=== PATIENT | female | born 1950 | race Caucasian/White ===

== ENCOUNTER 2016-03-12 08:09 | Inpatient (IN) | payer OTHER, MEDICARE ==
[2016-02-12 11:35] VITALS: BMI 32.0
--- NOTE | 2016-02-12 12:09 | PAT Medication Instructions ---
Service Date Feb 12, 2016. Current Home Medication List Aspirin (Aspirin Chewable), 81 MG PO QAM Atorvastatin (Lipitor), 20 MG PO QAM B Complex W/ C (Vitamin B Complex-C), 1 TAB PO QAM Calcium (Caltrate), 600 MG PO QAM Clonazepam (Klonopin), 0.5 MG PO HS PRN for RN Ibuprofen (Advil), 800 MG PO PRN Losartan Potassium & Hydrochlo (Hyzaar), 1 TAB PO QAM Magnesium Oxide (Mag-Ox), 400 MG PO QAM Multiple Vitamin (Multivitamin), 1 TAB PO QAM [place]-3 Fatty Acids (Fish Oil), 2,000 MG PO QAM Omeprazole (Prilosec), 20 MG PO QAM Potassium Chloride (Micro-K Ext Rel), 20 MEQ PO QAM Medication Instructions For Your Scheduled Surgery - Check with surgeon (Dr. Kendrick) for instructions: Aspirin (Aspirin Chewable), 81 MG PO QAM Ibuprofen (Advil), 800 MG PO PRN - Hold the following medications 2 weeks prior to surgery: [place]-3 Fatty Acids (Fish Oil), 2,000 MG PO QAM - Hold the following medications the morning of surgery: Losartan Potassium & Hydrochlo (Hyzaar), 1 TAB PO QAM Potassium Chloride (Micro-K Ext Rel), 20 MEQ PO QAM Magnesium Oxide (Mag-Ox), 400 MG PO QAM Multiple Vitamin (Multivitamin), 1 TAB PO QAM B Complex W/ C (Vitamin B Complex-C), 1 TAB PO QAM Calcium (Caltrate), 600 MG PO QAM - Take the following medications the morning of surgery with a sip of water: Omeprazole (Prilosec), 20 MG PO QAM Atorvastatin (Lipitor), 20 MG PO QAM - Take the following medications as scheduled the night before surgery: Clonazepam (Klonopin), 0.5 MG PO HS PRN for RN If you have any questions please call us at [phone] (Keysha Griggs PA-C) or [phone] or [phone]
[2016-02-12 12:57] LABS: BASO % 0.6 %; BASO ABS # 0.06 K/uL (0-0.2); COMPLETE YES; EOS % 2.4 %; HEMATOCRIT 36.6 % (37-47); IG% 0.4 %; LYMPH % 23.4 %; LYMPH ABS # 2.24 K/uL (1.2-3.4); MEAN CELL VOLUME 89.1 fL (80-100); MEAN CORPUSCULAR HEMOGLOBIN 30.2 pg (25-34); MEAN CORPUSCULAR HGB CONC 33.9 g/dl (32-36); MEAN PLATELET VOLUME 9.5 fL (7.4-10.4); MONO % 7.5 %; NEUT % 65.7 %; PLATELET COUNT 334 K/uL (130-400); RED BLOOD COUNT 4.11 M/uL (4.2-5.4); WHITE BLOOD COUNT 9.57 K/uL (4.8-10.8)
--- NOTE | 2016-02-12 13:15 | DIAGNOSTIC IMAGING REPORT ---
TWO VIEW CHEST CLINICAL HISTORY: Preoperative examination. FINDINGS: PA and lateral chest radiographs are compared to study dated 11/07/2011. The cardiomediastinal silhouette is unremarkable. The lungs and pleural spaces are clear. There is no pneumothorax. The skeletal structures are osteopenic. Degenerative change and scoliosis are noted in the thoracic spine. Cholecystectomy clips are suspected in the right upper quadrant. IMPRESSION: No active disease in the chest. Electronically signed by: Alexandru Muñoz M.D. 02/12/2016 1:13 PM
[2016-02-12 13:21] LABS: BUN/CREATININE RATIO 27.3 (10-20); CALCIUM 9.3 mg/dl (8.5-10.1); CREATININE 0.77 mg/dl (0.60-1.20)
--- NOTE | 2016-03-11 15:17 | HISTORY & PHYSICAL EXAMINATION ---
DATE OF ADMISSION: 03/12/2016 HISTORY: The patient presents to our office with complaints of back and bilateral leg pain, right greater than left. Prolonged walking and standing exacerbate her symptoms. She has trialed pain management injections with temporary relief. Denies bowel or bladder dysfunction. PAST MEDICAL HISTORY: Significant for GERD, hiatal hernia, obesity, hypertension, high cholesterol. PAST SURGICAL HISTORY: Significant for knee replacement, cholecystectomy, arthrocentesis of the right shoulder, arthroscopy of the wrist and knee. ALLERGIES: INCLUDE PENICILLIN, ERYTHROMYCIN, AND MELOXICAM. MEDICATIONS: Aspirin 81 mg a day, magnesium 250 mg a day, multivitamin, niacin 500 mg a day, hydrocodone p.r.n., Hyzaar 50/12.5 daily, Lipitor 10 mg daily, omeprazole 20 mg daily, oxycodone 10 mg every 12 hours, Zyrtec 10 mg p.r.n., Caltrate, Xarelto 10 mg daily, Super B Complex. SOCIAL HISTORY: She is . Alcohol none, tobacco none. REVIEW OF SYSTEMS: Significant for back and leg pain. PHYSICAL EXAMINATION: HEENT: Speech appropriate. CARDIOPULMONARY: No gross abnormalities. ABDOMEN: Soft, nondistended. GENITOURINARY: Deferred. NEUROLOGIC: Cranial nerves II-XII grossly intact. MUSCULOSKELETAL: She moves with a steady gait. She has weakness of her bilateral quadriceps, mostly secondary to knee pain. Sensory is intact. ASSESSMENT: Severe neural foraminal stenosis of L4-L5, marked disc space collapse of L5-S1, significant degenerative changes of L3-L4. PLAN: At this point in time, she has tried and failed conservative therapy and may consider surgical intervention. Surgery would require lumbar decompression and fusion of L4-L5 and L5-S1. Risks, benefits, pros, cons, and alternatives were outlined in detail. She would like to proceed with above-mentioned surgical intervention.
[~2016-03-12] VITALS: Ht 177.8 cm; Wt 102.0 kg
[2016-03-12] VITALS (7 sets, daily range): BP systolic 126–168; BP diastolic 68–82; PULSE 69–96; TEMP 36.1–37; O2SAT 91–98; Ht 177.8 cm; Wt 102.0 kg
--- NOTE | 2016-03-12 07:34 | History & Physical Bridge Note ---
H&P Re-Evaluation Bridge Note: I have examined the patient, reviewed the History & Physical and in the interval since the performance of the History & Physical I have noted the following changes of clinical significance: No changes noted
[~2016-03-12 08:09] MED LIST: ASPCH81X PO; ATOR-22 PO; ATROPINE SULFATE 0.1 MG/ML 5ML SYR IV PRN; B COCAP3 PO; CALC600T14 PO; CLINDAMYCIN 600 MG/54 ML D5W IV SCH; CLON0.5T3 PO; EpHEDrine SULFATE INJ 50 MG/ML AMP IV PRN; FENTANYL CITRATE INJ 50 MCG/1 ML 2 ML VIAL IV PRN; IBUP-1050 PO; LOSA100T2 PO; MAGN400T6 PO; MULTTAB58 PO; OMEGCAP2 PO; ONDANSETRON INJ 2 MG/ML 2 ML VIAL IV PRN; POTA10CA28 PO; PRLSR20 PO
[2016-03-12] MEDS ORDERED: ACET-1256 PO (08:44)
[2016-03-12] MEDS ORDERED: MIDAZOLAM HCL 1 MG/ML 2ML VIAL ONE (10:49)
[2016-03-12] MEDS ORDERED: FENTANYL CITRATE INJ 50 MCG/1 ML 2 ML VIAL ONE ×4 (10:50→14:36)
[2016-03-12] MEDS ORDERED: HYDROmorphone INJ 2 MG/ML SYR/VIAL ONE (11:45)
[2016-03-12] MEDS ORDERED: BACITRACIN 50000 UNIT VIAL IR ONE (12:11)
[2016-03-12] MEDS ORDERED: BUPIVACAINE/EPINEPHRINE 0.5% MPF 1:200,000 30 ML VIAL INJ ONE (12:11)
[2016-03-12] MEDS ORDERED: NEOSTIGMINE METHYLSULFATE 1 MG/ML 10ML VIAL ONE (13:04)
[2016-03-12] MEDS ORDERED: ROCURONIUM BROMIDE 10 MG/ML 5 ML VIAL ONE (13:04)
[2016-03-12] MEDS ORDERED: LIDOCAINE HCL 2% 2 ML VIAL (20MG/ML) ONE (13:04)
[2016-03-12] MEDS ORDERED: ONDANSETRON INJ 2 MG/ML 2 ML VIAL ONE (13:04)
[2016-03-12] MEDS ORDERED: DEXAMETHASONE SOD INJ 4 MG/ML VIAL ONE (13:04)
[2016-03-12] MEDS ORDERED: PROPOFOL IV EMULSION 10 MG/ML 20 ML VIAL IV ONE (13:04)
[2016-03-12] MEDS ORDERED: PHENYLEPHRINE 100MCG/ML 5ML SYR ONE (13:04)
[2016-03-12] MEDS ORDERED: GLYCOPYRROLATE INJ 0.2 MG/ML VIAL ONE (13:04)
[2016-03-12] MEDS ORDERED: DURASEAL DURAL SEALANT 5ML TOP ONE (13:35)
[2016-03-12] MEDS ORDERED: KETOROLAC TROMETHAMINE 30 MG/ML VIAL ONE (13:42)
[2016-03-12] MEDS ORDERED: SODIUM CHLORIDE 0.9% 1000ML 1,000 ML IV SCH (13:43)
[2016-03-12] MEDS ORDERED: FLOSEAL HEMOSTATIC MATRIX 10ML TOP ONE (13:45)
[2016-03-12] MEDS ORDERED: METOCLOPRAMIDE HCL INJ 5 MG/ML 2 ML VIAL IV PRN (13:45)
[2016-03-12] MEDS ORDERED: DO NOT ADMINISTER FLU VACCINE PRN ×3 (13:45)
[2016-03-12] MEDS ORDERED: BISACODYL 10 MG SUPP PR PRN (13:45)
[2016-03-12] MEDS ORDERED: SOD PHOSPHATE/SOD BIPHOSPHATE ENEMA 132 ML BTL PR PRN (13:45)
[2016-03-12] MEDS ORDERED: PROMETHAZINE HCL INJ 12.5 MG in SODIUM CHLORIDE 0.9% 50ML 50 ML IV PRN (13:45)
[2016-03-12] MEDS ORDERED: LORAZEPAM INJ 0.5 MG in SYRINGE 0.75 ML IV PRN (13:45)
[2016-03-12] MEDS ORDERED: DO NOT ADMINISTER PNEUMOCOCCAL VACCINE PRN ×2 (13:45)
[2016-03-12] MEDS ORDERED: ACETAMINOPHEN IV 100 ML IV PRN (13:45)
[2016-03-12] MEDS ORDERED: MAGNESIUM HYDROXIDE SUSP 30 ML UDC PO PRN (13:45)
[2016-03-12] MEDS ORDERED: NALOXONE HCL 0.4 MG/1 ML VIAL/CARP IV PRN ×2 (13:45)
--- NOTE | 2016-03-12 13:49 | DIAGNOSTIC IMAGING REPORT ---
INTRAOPERATIVE FLUOROSCOPIC IMAGES OF THE LUMBAR SPINE CLINICAL HISTORY: L4-S1 decompression and fusion. COMPARISON STUDY: No previous studies for comparison. FLUOROSCOPY TIME: 23 seconds. FINDINGS: 2 fluoroscopic images demonstrate L4-L5 and L5-S1 discectomies with interbody spacer placement. There is a posterior decompression. Note is made of bilateral pedicle screws at the L4, L5 and S1 levels with interconnecting rods. Hardware is intact. IMPRESSION: Intraoperative fluoroscopic images demonstrating L4-L5 and L5-S1 discectomies and L4-S1 bilateral pedicle screw fusion. Electronically signed by: David Naqvi M.D. 03/12/2016 1:47 PM Dictated Date/Time: 03/12/2016 1:46 PM
[2016-03-12] MEDS ORDERED: HYDROmorphone HCL 0.5MG/ML 50 ML CASSETTE ONE (14:11)
--- NOTE | 2016-03-12 14:44 | OPERATIVE REPORT ---
DATE OF OPERATION: 03/12/2016 PREOPERATIVE DIAGNOSES: Spinal stenosis, spondylolisthesis. POSTOPERATIVE DIAGNOSES: Same. PROCEDURES PERFORMED: 1. Lumbar decompression, medial facetectomy, and foraminotomy L3-4, L4-5, L5-S1. 2. Posterior spinal fusion L4-5, L5-S1. 3. Placement posterior segmental instrumentation using Orthros rods and screws L4-5, L5-S1. 4. Interbody fusion L4-5 and L5-S1. 5. Placement of PEEK cage 10 x 22 at L4-5 and L5-S1. 6. Placement of locally harvested morcellized autograft posterior gutters. 7. Placement of Infuse collagen sponge combined with Mastergraft in the posterior gutters and Theresa bone grafting in interbody space. SURGEON: Dr. Wily Kendrick. SWITCH FOREMAN: Lili Martinez PA-C. Due to the complex nature of the procedure, the entire surgery was performed with the assistant professor of biology of [employer]. The customer relations assistant, under direct supervision, was involved in the actual performance of all aspects of the surgical procedure including hemostasis, tissue retraction and incision, instrument management, patient positioning, and wound closure. ANESTHESIA: General. DISPOSITION: The patient awakened and taken to PACU in stable condition. HISTORY OF PATIENT'S PROBLEMS: This is a 66-year-old female who presents with above-mentioned diagnosis after failing an extensive course of nonoperative care, elected to undergo the above-mentioned procedure. Risks, benefits, pros, cons, and alternatives were outlined in detail preoperatively. DESCRIPTION OF PROCEDURE: The patient was met with preoperatively, case discussed and all questions were addressed. At that point, the patient was taken back to operative suite and after undergoing successful general endotracheal intubation via department of anesthesia was placed in prone position on Charles table atop Chester frame. All bony prominences were well padded and the eyes were inspected to ensure there was no external pressure placed upon them. At this point, lumbar spine was prepped and draped in normal sterile fashion. Sharp dissection with the assistance of Bovie cautery was performed down to and exposing the lamina and transverse processes of L4, L5 and sacral ala bilaterally. From a caudal to cephalad fashion, complete laminectomy of L5, L4, and partial laminectomy of L3 was performed addressing severe lateral recess and foraminal stenosis. Pedicle screws were then placed in L4-5 and S1 levels bilaterally with assistance of fluoroscopy and appropriate size jossie provisionally placed. Through a transforaminal approach on the right, a complete discectomy of L5-S1 was performed, endplates curetted to subcortical bleeding bone and a 10 x 22 mm PEEK cage filled with Theresa bone grafting tapped into position. I then proceeded to L4-5 and again through a transforaminal approach on the right, a complete discectomy was performed, endplates curetted to subcortical bone and again 10 x 22 mm PEEK cage filled with Theresa bone grafting tapped into position. Rods were then compressed, locked into final position bilaterally and incidental durotomy was noted dorsally at the distal aspect of the decompression. This was repaired with 4-0 Nurolon and approximately 1 mL of DuraSeal. There was thin leak appeared to be of watertight seal. The transverse processes of L4, L5 and S1 levels were then burred to subcortical bone. Infuse collagen sponge combined with Mastergraft and locally harvested morcellized autograft was placed in the posterior gutters. Incision was closed with 1-0 Vicryl in the fascia, 2-0 Vicryl subcutaneously, 4-0 Monocryl for final skin closure. Steri-Strips and sterile dressing placed. The patient was awakened and taken to PACU in stable condition. I attest to the content of the Intraoperative Record and any orders documented therein. Any exceptio ns are noted below.
[2016-03-12] MEDS: HYDROmorphone INJ 1 MG/ML SYR IV PRN ×3 (14:55→15:15)
--- NOTE | 2016-03-12 15:29 | Anesthesiology Progress Note ---
Anesthesia Post Op Note Date & Time Mar 12, 2016 at 15:28 Vital Signs Pain Intensity: 5 Vital Signs Past 12 Hours Date Time Temp Pulse Resp B/P Pulse Ox O2 Delivery O2 Flow Rate FiO2 03/12/16 15:09 71 14 96 03/12/16 15:09 72 14 03/12/16 15:08 128/62 03/12/16 15:04 68 18 96 03/12/16 15:04 68 18 03/12/16 15:03 123/69 03/12/16 14:59 75 22 96 03/12/16 14:59 75 22 03/12/16 14:58 118/69 03/12/16 14:54 73 15 03/12/16 14:54 72 15 95 03/12/16 14:53 119/68 03/12/16 14:49 68 17 98 03/12/16 14:49 68 17 03/12/16 14:48 130/67 03/12/16 14:44 68 16 95 03/12/16 14:44 68 16 03/12/16 14:43 127/67 03/12/16 14:39 69 18 92 03/12/16 14:39 70 18 03/12/16 14:38 110/76 03/12/16 14:34 76 15 134/68 95 03/12/16 14:34 75 15 03/12/16 14:29 74 21 100 03/12/16 14:29 74 21 03/12/16 14:28 126/64 03/12/16 14:24 73 21 100 03/12/16 14:24 73 21 03/12/16 14:23 127/72 03/12/16 14:21 72 19 100 03/12/16 14:21 73 19 03/12/16 14:18 132/72 03/12/16 14:16 74 20 03/12/16 14:16 74 20 100 03/12/16 14:13 36.8 83 14 132/69 98 Mask 10 03/12/16 14:13 128/66 03/12/16 14:11 71 22 99 03/12/16 14:11 71 22 03/12/16 14:08 132/69 03/12/16 14:06 78 19 03/12/16 14:06 78 19 98 03/12/16 14:06 36.8 84 14 141/71 98 Mask 10 03/12/16 08:51 36.5 96 20 168/77 96 Room Air Notes Mental Status: alert / awake / arousable, participated in evaluation Pt Amnestic to Procedure: Yes Nausea / Vomiting: adequately controlled Pain: adequately controlled Airway Patency, RR, SpO2: stable & adequate BP & HR: stable & adequate Hydration State: stable & adequate Anesthetic Complications: no major complications apparent
[2016-03-12] MEDS: HYDROmorphone HCL 0.5MG/ML 50 ML CASSETTE IV PRN ×2 (15:54→22:54)
[2016-03-12] MEDS: LACTATED RINGER'S 1000ML 1,000 ML IV SCH ×2 (16:07→20:06)
[2016-03-12] MEDS: DOCUSATE SODIUM/SENNA 50/8.6MG TAB PO SCH (20:56)
[2016-03-12] MEDS: DEXAMETHASONE INJ 6 MG in SYRINGE 0 ML IV SCH (21:50)
[2016-03-12] MEDS: ONDANSETRON INJ 2 MG/ML 2 ML VIAL IV PRN (21:50)
[2016-03-12] MEDS: CLINDAMYCIN IV 600 MG in DEXTROSE 5% ADD-VANTAGE 50ML 50 ML IV SCH (21:50)
[2016-03-12] MEDS: ACETAMINOPHEN 500 MG TAB PO PRN (21:50)
[2016-03-12] MEDS: LORAZEPAM 0.5 MG TAB PO PRN (22:30)
[2016-03-13 02:50] VITALS: BP 148/74; PULSE 90; TEMP 36.9; O2SAT 93
[2016-03-13] MEDS: LACTATED RINGER'S 1000ML 1,000 ML IV SCH ×4 (02:50→21:43)
[2016-03-13] MEDS ORDERED: HYDROmorphone INJ 0.5 MG/0.5 ML SYR IV PRN (06:00)
[2016-03-13] MEDS ORDERED: DC PCA SCH (06:00)
[2016-03-13] MEDS: CLINDAMYCIN IV 600 MG in DEXTROSE 5% ADD-VANTAGE 50ML 50 ML IV SCH (06:11)
[2016-03-13] MEDS: ONDANSETRON INJ 2 MG/ML 2 ML VIAL IV PRN ×2 (06:11→18:31)
[2016-03-13] MEDS: DEXAMETHASONE INJ 6 MG in SYRINGE 0 ML IV SCH ×2 (06:12→13:52)
[2016-03-13 06:28] LABS: BASO % 0.1 %; BASO ABS # 0.01 K/uL (0-0.2); COMPLETE YES; HEMATOCRIT 31.8 % (37-47); IG% 0.4 %; LYMPH % 4.2 %; LYMPH ABS # 0.67 K/uL (1.2-3.4); MEAN CELL VOLUME 87.1 fL (80-100); MEAN CORPUSCULAR HEMOGLOBIN 30.4 pg (25-34); MEAN CORPUSCULAR HGB CONC 34.9 g/dl (32-36); MONO % 9.1 %; NEUT % 86.2 %; PLATELET COUNT 276 K/uL (130-400); RED BLOOD COUNT 3.65 M/uL (4.2-5.4)
[2016-03-13 06:56] LABS: BUN/CREATININE RATIO 29.4 (10-20); CALCIUM 8.9 mg/dl (8.5-10.1); CREATININE 0.69 mg/dl (0.60-1.20)
[2016-03-13 07:12] VITALS: BP 124/70; PULSE 81; TEMP 36.9; O2SAT 91
[2016-03-13] MEDS: OXYCODONE HCL IR 5 MG TAB (IMMEDIATE RELEASE) PO PRN ×3 (07:55→20:29)
--- NOTE | 2016-03-13 08:25 | PROGRESS NOTE ---
DATE: 03/13/2016 Postop day 1. She complained of a modest headache last evening. She seems asymptomatic at this time. She is frustrated lying in bed. Would like to roll over to her side more often. She denies any leg pain. Denies any current nausea or vomiting. On exam, she has excellent strength to testing. Demonstrates no nuchal rigidity or photophobia. ASSESSMENT: Status post lumbar decompression and fusion. PLAN: At this time, I would like to maintain essentially bed rest for another 24 hours. We will maintain regular IV fluids. Reassess in a.m. Perhaps begin physical therapy after my assessment.
[2016-03-13] MEDS ORDERED: LOSARTAN POTASSIUM PO SCH (09:00)
[2016-03-13] MEDS ORDERED: HYDROCHLO PO SCH (09:00)
[2016-03-13] MEDS: ASPIRIN 81 MG CHEW PO SCH (09:00)
[2016-03-13] MEDS: POTASSIUM CHLORIDE 20 MEQ TABCR PO SCH (09:14)
[2016-03-13 09:15] VITALS: BP 125/71; PULSE 81
[2016-03-13] MEDS: LOSARTAN POTASSIUM 50 MG TAB PO SCH (09:16)
[2016-03-13] MEDS: ATORVASTATIN 20 MG TAB PO SCH (09:17)
[2016-03-13] MEDS: HYDROCHLOROTHIAZIDE 25 MG TAB PO SCH (09:17)
[2016-03-13] MEDS: MAGNESIUM OXIDE 400 MG TAB PO SCH (09:18)
[2016-03-13] MEDS: PANTOprazole SOD 40 MG TAB PO SCH (09:47)
[2016-03-13] MEDS: ACETAMINOPHEN 500 MG TAB PO PRN (11:01)
[2016-03-13 12:20] VITALS: BP 128/73; PULSE 76; TEMP 36.6; O2SAT 92
--- NOTE | 2016-03-13 13:00 | Anesthesiology Progress Note ---
Anesthesia Post Op Note Date & Time Mar 13, 2016 at 13:00 Vital Signs Vital Signs Past 12 Hours Date Time Temp Pulse Resp B/P Pulse Ox O2 Delivery O2 Flow Rate FiO2 03/13/16 12:20 36.6 76 12 128/73 92 Room Air 03/13/16 09:15 81 125/71 03/13/16 08:00 Room Air 03/13/16 07:12 36.9 81 16 124/70 91 Room Air 03/13/16 02:50 36.9 90 16 148/74 93 Room Air Notes Mental Status: alert / awake / arousable, participated in evaluation Pt Amnestic to Procedure: Yes Nausea / Vomiting: adequately controlled Pain: adequately controlled Airway Patency, RR, SpO2: stable & adequate BP & HR: stable & adequate Hydration State: stable & adequate Anesthetic Complications: no major complications apparent
[2016-03-13 16:00] VITALS: BP 127/58; PULSE 67; TEMP 36.8; O2SAT 93
[2016-03-13] MEDS: DOCUSATE SODIUM/SENNA 50/8.6MG TAB PO SCH (20:25)
[2016-03-13] MEDS: LORAZEPAM 0.5 MG TAB PO PRN (21:46)
[2016-03-13 23:28] VITALS: BP 122/66; PULSE 77; TEMP 36.8; O2SAT 92
[2016-03-14] MEDS: ONDANSETRON INJ 2 MG/ML 2 ML VIAL IV PRN ×3 (04:17→22:37)
[2016-03-14] MEDS: HYDROmorphone INJ 1 MG/ML SYR IV PRN (04:18)
[2016-03-14] MEDS: LACTATED RINGER'S 1000ML 1,000 ML IV SCH ×2 (04:19→10:33)
[2016-03-14] MEDS: POLYETHYLENE (MIRALAX) 17 GM PACK PO SCH ×3 (05:20→18:45)
[2016-03-14 06:58] VITALS: BP 131/70; PULSE 78; TEMP 36.8; O2SAT 95
[2016-03-14] MEDS: MAGNESIUM OXIDE 400 MG TAB PO SCH ×2 (08:43→10:32)
[2016-03-14] MEDS: ASPIRIN 81 MG CHEW PO SCH (08:43)
[2016-03-14] MEDS: POTASSIUM CHLORIDE 20 MEQ TABCR PO SCH ×2 (08:43→10:31)
[2016-03-14] MEDS: HYDROCHLOROTHIAZIDE 25 MG TAB PO SCH (08:43)
[2016-03-14] MEDS: LOSARTAN POTASSIUM 50 MG TAB PO SCH (08:43)
[2016-03-14] MEDS: PANTOprazole SOD 40 MG TAB PO SCH (08:44)
[2016-03-14] MEDS: ATORVASTATIN 20 MG TAB PO SCH (08:44)
[2016-03-14] MEDS ORDERED: RXC5 PO (10:26)
--- NOTE | 2016-03-14 10:27 | Discharge Instructions ---
Discharge Instructions Admission Reason for Admission: Spinal Stenosis Discharge Discharge Diagnosis / Problem: stenosis Discharge Goals Goal(s): Improve function Activity Recommendations Activity Limitations: per Instructions/Follow-up section . Instructions / Follow-Up Instructions / Follow-Up ACTIVITY RECOMMENDATIONS: SELF CARE INSTRUCTIONS AFTER THORACIC/LUMBAR FUSIONS 1. You may walk to your tolerance. It is good exercise for your legs and back. Expect some back and intermittent leg aches and pains. 2. You may perform "counter-top" level activities (make a sandwich, ly with a project, etc.). 3. No bending or lifting of more than 10 pounds or back twisting of any nature (roll like a log when turning in bed). 4. You may ride in a car for 20-30 minutes at a time. No driving until after your first visit with your doctor. 5. Frequent changes of position and restricting sitting to 30 minutes at a time will help limit the amount of back spasms and stiffness you may experience. 6. You may discontinue the use of ambulatory aids (cane, crutches, etc.) once your strength and confidence allow. 7. You may hard rock miner blasting the shower and let water strike your incision when you arrive home at least once daily. Do not take a tub bath, sit in a hot tub or go into a swimming pool until after your first recheck in the office. SPECIAL CARE INSTRUCTIONS: VERY IMPORTANT TO READ AND REVIEW A. Your surgical incision has been closed with a cosmetic suture under the skin that will dissolve in about 6 weeks. In 14 days, you can use a pair of clean scissors and cut the suture that is left outside of the skin at the ends of your incision. 1. The small skin tapes can be removed 7 days after surgery if they have not fallen off by that point. 2. You may keep the wound open to air as much as possible to promote healing after post-op day number 5 unless told otherwise by your doctor. 3. If you think the wound looks like it is becoming infected (redness or worsening drainage) and/or you are experiencing fever, chill or worsening back pain and muscle spasms, contact the office so that we may evaluate you as soon as possible. B. Complications are uncommon, but please contact us if you have any signs or symptoms of: 1. wound infection (fever higher than 102.5 degrees F, redness, separation of wound, drainage, or increasing pain from the incision) 2. blood clots in legs (pain, swelling, redness and warmth in legs) 3. urinary tract infection (fever higher than 102.5 degrees F, burning upon urination or increased frequency of urination) 4. nerve problems (inability to walk on your toes or heels, numbness, loss of bowel or bladder control) 5. any other symptoms that concern you C. Please call the office at if you have any concerns or questions about your operation or recovery. D. No smoking! Smoking drastically decreases the chance of a solid fusion. E. Do not take any anti-inflammatory medications (Indocin, Advil, Motrin, Aspirin, Naprosyn, etc.) as these may inhibit the chance of a solid fusion. Tylenol is okay to take for pain. MANAGING PAIN AFTER SPINAL SURGERY 1. Narcotic medication is intended for short-term use and will be provided for surgical pain. Surgical pain usually lasts for a period of 4-6 weeks. Narcotic medication includes Percocet, Vicodin, Darvocet, Tylenol #3 or Lortab. 2. Longer-term pain is more appropriately treated with non-narcotic medication such as Tylenol ES. 3. Muscle spasm is not appropriately treated with narcotics. Muscle relaxers such as Soma, Flexeril or Skelaxin can be used along with Tylenol ES. 4. Remember that we all live with some "aches and pains". This is not unusual or uncommon after an injury or as we get older. a. Back pain is expected and may include muscle spasms for 4 to 6 weeks after surgery. The pain should gradually improve. If the pain worsens for no apparent reason, please contact the office. b. Intermittent leg pain may also be experienced and should not be concerned about unless it worsens for no apparent reason. If so, please contact the office. 5. We will provide appropriate medication within the normal guidelines of their prescribed use. We will also be very cautious and aware of potential abuse and extended duration of patients' medication needs. a. Pain medications are for your comfort and to assist with sleep and rest so that the tissue can heal. They are not provided in order to return to normal activity and should not be used through the day. To do so or worsening pain at night can result from ongoing tissue damage and development of tolerance to the prescribed medicine. 6. Please allow 2-3 days to process refills. Prescriptions will not be mailed but must be picked up at the office. FOLLOW UP VISIT: Keep your scheduled follow-up appointment. Any questions, please call the office at . Current Hospital Diet Patient's current hospital diet: Regular Diet Discharge Diet Recommended Diet: Regular Diet Procedures Procedures Performed: L4-S1 Lumbar Decompression, Fusion with Instrumentation, Discectomy; Pedicle Screw Fixation; Interbody Fusion with application of Interbody cage at L4-L5, L5-S1, Bone Morphogenetic Protein, Theresa Allograft; Repair of Dural Tear Pending Studies Studies pending at discharge: no Medical Emergencies . Who to Call and When: Medical Emergencies: If at any time you feel your situation is an emergency, please call 911 immediately. . Non-Emergent Contact Non-Emergency issues call your: Primary Care Provider . "Provider Documentation" section prepared by Wily Kendrick. VTE Core Measure Inpt VTE Proph given/why not?: Luis Antonio Rodriguez, [facility]
[2016-03-14] MEDS: OXYCODONE HCL IR 5 MG TAB (IMMEDIATE RELEASE) PO PRN ×2 (12:15→22:29)
--- NOTE | 2016-03-14 13:57 | PROGRESS NOTE ---
DATE: 03/14/2016 DATE: 03/14/2016. SUBJECTIVE: Postop day 2. This morning she states she has some soreness in the back. No leg pain. No headaches, no nausea, vomiting or photophobia. Vital signs stable. T-max 36.8. Hematocrit stable at 31.8. OBJECTIVE: On exam, she has good strength to testing. She is able to sit up in bed, looks quite comfortable. ASSESSMENT: Status post multilevel lumbar decompression and fusion. PLAN: At this time, will initiate slow activity, bed to chair at most today. Reassess her tomorrow. If she continues to improve, we will consult physical therapy for ambulation.
[2016-03-14 15:05] VITALS: BP 121/77; PULSE 81; TEMP 36.7; O2SAT 94
[2016-03-14] MEDS: ACETAMINOPHEN 500 MG TAB PO PRN (15:44)
[2016-03-14] MEDS: LORAZEPAM 0.5 MG TAB PO PRN (15:44)
[2016-03-14] MEDS: DOCUSATE SODIUM/SENNA 50/8.6MG TAB PO SCH (20:45)
[2016-03-14] MEDS: CLONAZEPAM 0.5 MG TAB PO PRN (20:45)
[2016-03-14 23:36] VITALS: BP 132/79; PULSE 91; TEMP 36.5; O2SAT 92
[2016-03-15] MEDS: POLYETHYLENE (MIRALAX) 17 GM PACK PO SCH ×4 (00:16→18:33)
[2016-03-15] MEDS: LORAZEPAM 0.5 MG TAB PO PRN ×2 (01:38→03:06)
[2016-03-15] MEDS: OXYCODONE HCL IR 5 MG TAB (IMMEDIATE RELEASE) PO PRN ×2 (03:09→08:22)
[2016-03-15] MEDS: HYDROmorphone INJ 1 MG/ML SYR IV PRN (03:52)
[2016-03-15 07:00] VITALS: BP 114/59; PULSE 98; TEMP 37.2; O2SAT 96
[2016-03-15] MEDS: PANTOprazole SOD 40 MG TAB PO SCH (08:17)
[2016-03-15] MEDS: MAGNESIUM OXIDE 400 MG TAB PO SCH (08:18)
[2016-03-15] MEDS: HYDROCHLOROTHIAZIDE 25 MG TAB PO SCH (08:19)
[2016-03-15] MEDS: LOSARTAN POTASSIUM 50 MG TAB PO SCH ×3 (08:19→11:00)
[2016-03-15] MEDS: POTASSIUM CHLORIDE 20 MEQ TABCR PO SCH (08:20)
[2016-03-15] MEDS: ATORVASTATIN 20 MG TAB PO SCH (08:20)
[2016-03-15] MEDS: ACETAMINOPHEN 500 MG TAB PO PRN ×2 (08:21→18:37)
--- NOTE | 2016-03-15 09:58 | PROGRESS NOTE ---
DATE: 03/15/2016 DATE: 03/15/2016. SUBJECTIVE: Back pain is controlled. Complains of some leg discomfort when lying supine or sitting for long periods of time. She does have notable leg weakness on the left. This has been preexisting. She denies any headaches, nausea or vomiting. Vital signs stable. T-max 37.2. OBJECTIVE: On exam the patient is sitting up at the side of the bed, has good strength to testing. Her plantarflexion, dorsiflexion weakness to left quads. Sensory is symmetric and intact. ASSESSMENT: Status post lumbar decompression and fusion. PLAN: At this time, will initiate physical therapy today, consult social worker delinquency prevention for possible [facility] placement Thursday or Thursday.
[2016-03-15] MEDS: ASPIRIN 81 MG CHEW PO SCH (10:59)
[2016-03-15 15:04] VITALS: BP 120/79; PULSE 91; TEMP 36.5; O2SAT 94
[2016-03-15] MEDS ORDERED: NURSING VERBAL MED ORDER ONE (15:15)
[2016-03-15] MEDS: LACTATED RINGER'S 1000ML 1,000 ML IV SCH ×2 (15:24→22:02)
[2016-03-15] MEDS: DOCUSATE SODIUM/SENNA 50/8.6MG TAB PO SCH (22:00)
[2016-03-15 23:04] VITALS: BP 100/60; PULSE 82; TEMP 36.4; O2SAT 93
[2016-03-16] MEDS: OXYCODONE HCL IR 5 MG TAB (IMMEDIATE RELEASE) PO PRN ×2 (00:18→05:31)
[2016-03-16] MEDS: CLONAZEPAM 0.5 MG TAB PO PRN (00:18)
[2016-03-16] MEDS: POLYETHYLENE (MIRALAX) 17 GM PACK PO SCH ×4 (00:27→18:00)
[2016-03-16] MEDS: HYDROmorphone INJ 1 MG/ML SYR IV PRN ×2 (02:22→23:51)
[2016-03-16 07:07] VITALS: BP 120/67; PULSE 95; TEMP 37.9; O2SAT 90
[2016-03-16] MEDS: LORAZEPAM 0.5 MG TAB PO PRN (08:02)
[2016-03-16] MEDS: ACETAMINOPHEN 500 MG TAB PO PRN ×2 (08:03→22:26)
[2016-03-16] MEDS: LOSARTAN POTASSIUM 50 MG TAB PO SCH (09:43)
[2016-03-16] MEDS: POTASSIUM CHLORIDE 20 MEQ TABCR PO SCH (09:44)
[2016-03-16] MEDS: HYDROCHLOROTHIAZIDE 25 MG TAB PO SCH (09:44)
[2016-03-16] MEDS: MAGNESIUM OXIDE 400 MG TAB PO SCH (09:44)
[2016-03-16] MEDS: ATORVASTATIN 20 MG TAB PO SCH (09:44)
[2016-03-16] MEDS: PANTOprazole SOD 40 MG TAB PO SCH (09:44)
[2016-03-16] MEDS: ASPIRIN 81 MG CHEW PO SCH (09:46)
--- NOTE | 2016-03-16 13:13 | PROGRESS NOTE ---
DATE: 03/16/2016 HISTORY OF PRESENT ILLNESS: She is doing well. She is tolerating physical therapy. Notes some leg weakness in certain positions, but otherwise relatively comfortable. PHYSICAL EXAMINATION: On exam, T-max is 37.9. No bowel movement as of yet. She has good strength to testing at the bedside. ASSESSMENT: Status post lumbar decompression and fusion. PLAN: At this time, she will continue physical therapy today, advance her bowel regimen and anticipate discharge to [facility] that is on Thursday.
[2016-03-16 15:27] VITALS: BP 122/83; PULSE 88; TEMP 36.7; O2SAT 96
[2016-03-16 16:00] VITALS: O2SAT 96
[2016-03-16] MEDS: DOCUSATE SODIUM/SENNA 50/8.6MG TAB PO SCH (20:59)
[2016-03-16 23:38] VITALS: BP 127/76; PULSE 102; TEMP 36.6; O2SAT 93
[2016-03-17] MEDS ORDERED: NURSING VERBAL MED ORDER ONE
[2016-03-17] MEDS: LORAZEPAM 0.5 MG TAB PO PRN (00:33)
[2016-03-17] MEDS: OXYCODONE HCL IR 5 MG TAB (IMMEDIATE RELEASE) PO PRN ×2 (04:03→12:33)
[2016-03-17 07:19] VITALS: BP 123/68; PULSE 75; TEMP 36.3; O2SAT 96
[2016-03-17] MEDS: POTASSIUM CHLORIDE 20 MEQ TABCR PO SCH (08:55)
[2016-03-17] MEDS: ATORVASTATIN 20 MG TAB PO SCH (08:56)
[2016-03-17] MEDS: MAGNESIUM OXIDE 400 MG TAB PO SCH (08:56)
[2016-03-17] MEDS: PANTOprazole SOD 40 MG TAB PO SCH (08:57)
[2016-03-17 08:58] VITALS: BP 127/71; PULSE 81
[2016-03-17] MEDS: HYDROCHLOROTHIAZIDE 25 MG TAB PO SCH (08:59)
[2016-03-17] MEDS: LOSARTAN POTASSIUM 50 MG TAB PO SCH (09:00)
[2016-03-17] MEDS: ASPIRIN 81 MG CHEW PO SCH (09:05)
[2016-03-17 11:34] VITALS: BP 127/71; PULSE 81; TEMP 36.3; O2SAT 96
--- NOTE | 2016-03-17 18:34 | DISCHARGE SUMMARY ---
PRINCIPAL DIAGNOSIS: Spinal stenosis. HOSPITAL COURSE FOLLOWS: On March 12, the patient underwent lumbar decompression and fusion, tolerated this well and taken to the orthopedic floor postoperatively. Postop day #1, he did maintain bed rest for 24 hours. Subsequently, on postop day 2, we did initiate physical therapy. She tolerated this well and progressed throughout the weekend, but did require assistance getting out of bed and considerable effort with physical therapy. Subsequently elected to discharge to [facility]. Discharge orders and instructions found on the chart for further review.
== END 2016-03-17 12:46 | DRG 460 ==
LOC: ENRESERVTM → ENRESERVDT → C.ACU 08:09 → C.MSN 13:46
PROVIDERS: ADMIT Orthopaedic Surgery Orthopaedic Surgery of the Spine; ATTEND Orthopaedic Surgery Orthopaedic Surgery of the Spine
PROC: 0ST40ZZ Resection of Lumbosacral Disc, Open Approach (ICD-10-PCS; principal; 2016-03-12 10:00)
PROC: 0SG1071 Fusion of 2 or more Lumbar Vertebral Joints with Autologous Tissue Substitute, Posterior Approach, Posterior Column, Open Approach (ICD-10-PCS; principal; 2016-03-12 10:00)
PROC: 0SG3071 Fusion of Lumbosacral Joint with Autologous Tissue Substitute, Posterior Approach, Posterior Column, Open Approach (ICD-10-PCS; principal; 2016-03-12 10:00)
PROC: 0ST20ZZ Resection of Lumbar Vertebral Disc, Open Approach (ICD-10-PCS; principal; 2016-03-12 10:00)
PROC: 0SG00AJ Fusion of Lumbar Vertebral Joint with Interbody Fusion Device, Posterior Approach, Anterior Column, Open Approach (ICD-10-PCS; principal; 2016-03-12 10:00)
PROC: 3E0V0GB Introduction of Recombinant Bone Morphogenetic Protein into Bones, Open Approach (ICD-10-PCS; principal; 2016-03-12 10:00)
PROC: 0SG30AJ Fusion of Lumbosacral Joint with Interbody Fusion Device, Posterior Approach, Anterior Column, Open Approach (ICD-10-PCS; principal; 2016-03-12 10:00)
DX: M48.06 Spinal stenosis, lumbar region (principal); K21.9 Gastro-esophageal reflux disease without esophagitis; K44.9 Diaphragmatic hernia without obstruction or gangrene; E66.9 Obesity, unspecified; E78.00 Pure hypercholesterolemia, unspecified; M43.16 Spondylolisthesis, lumbar region; Z68.32 Body mass index [BMI] 32.0-32.9, adult; Z96.659 Presence of unspecified artificial knee joint